=== PATIENT | male | born 1935 | race Caucasian/White ===

== ENCOUNTER 2022-05-17 10:22 | Day surgery (SDC) | payer MEDICARE, SELFPAY ==
[2022-05-17] VITALS (9 sets, daily range): BP systolic 132–156; BP diastolic 67–90; PULSE 61–66; RESP 15–17; TEMP 36.8; O2SAT 96–98; BMI 22.1
[2022-05-17] MEDS: BUPIVACAINE 0.5% 30 ML INJECTION (13:26)
[2022-05-17] MEDS: LIDOCAINE 1 % PF 30 ML INJECTION (13:30)
--- NOTE | 2022-05-17 15:07 | P.GSOP_ITS ---
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 Conservative measures failed to resolve the situation. Would like to proceed with surgical intervention. At his age instead of reconstructive surgery amputation is likely his best option. He is in agreement and would like to proceed. Reviewed the procedure, recovery, expectations and potential complications. These include but not limited to: Poor wound healing, infection, potential need for future surgery, deep venous thrombosis, pulmonary embolism and possible . He unde rstands risks written consent obtained. Procedure Description: After discussing the risks and benefits of the procedure, the patient signed informed consent.? The operative site was marked and the patient was brought to the operating room and placed on the operating table in supine position.? Care was taken to pad the patient's pressure points.?? The patient was then injected with a combination of 0.5% Marcaine plain and lidocaine 1% plain.?? The operative site was then prepped and draped in the usual sterile fashion.? A time-out was then performed. The right foot was exsanguinated and the ankle tourniquet inflated to 250 mm Hg. Dorsal incision was made at the 2nd MPJ and extended along both the medial and lateral base of 2nd toe converging plantarly. Incisions were taken directly to bone. The toe was disarticulated at the metatarsophalangeal joint and removed in total. Wound was thoroughly irrigated normal sterile saline. Tourniquet was released and all bleeding vessels cauterized. Medial and lateral skin was then brought together and repaired with 3-0 nylon. Sterile dressings were then applied. The patient was then woken and transported to the recovery area in stable condition. The patient tolerated the procedure well. Findings: Complications: None apparent Implants: None Anesthesia: local Surgeon: Adán Boone DPM Estimated blood loss (mL): 5 Condition: stable Disposition: same day
== END 2022-05-17 14:09 | disposition home or self-care (01) ==
PROVIDERS: PCP Family Medicine; Visit Provider Podiatrist
PROC: (CPT 28820; principal; 2022-05-17 12:45)
DX: M20.5X1 Other deformities of toe(s) (acquired), right foot (principal)
CPT/HCPCS: 28820; J2001; J3490

== ENCOUNTER 2024-12-26 10:03 | Emergency (ER) | payer MEDICARE, SELFPAY ==
--- OUTSIDE RECORDS SUMMARY | 2024-12-26 10:07 | XMS_ITS | Clinical Summary ---
Author Organization [facility] Address [address] [place] [id number] Care Team Providers Care Support Coordinator Name Role Phone AllanteDanie jimenez MD Primary Care Provider + Tere Chaves MD Unavailable [phone] Yahaira Singer Unavailable [phone] Louann Jerez MD Unavailable John Rm MD Unavailable [phone] Allergies Active Allergy Reactions Criticality Noted Date Comments Ciprofloxacin Other - Describe In Comment Field 10/07/2022 Please avoid fluoroquinolones in patient with aortic or iliac aneurysm/dissection. Medications MULTIVITAMIN TAB Once daily 0 7 Active docosahexaenoic acid/epa (FISH OIL ORAL) Take 1 Capsule by mouth once daily. 180 3 7 Active ASPIRIN, BUFFERED 325 MG TAB Take 325 mg by mouth once daily. 0 8 Active VITAMIN D 1,000 UNIT CAP Take by mouth once daily. 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 90 Tablet 3 5 Active hydroxychloroquin e 200 mg tabletIndications :Pseudogout Take 1/2 tablet (split tablet in half) of the 200 mg to equal 100 mg daily 45 Tablet 3 5 Active colchicine 0.6 mg tabletIndications :Pseudogout Take 1 Tablet (0.6 mg) by mouth once daily. 90 Tablet 3 5 Active atorvastatin 20 mg tabletIndications :Atherosclerosis of coronary artery of nav[place] heart without angina pectoris, unspecified vessel or lesion type TAKE 1 TABLET BY MOUTH EVERYDAY AT BEDTIME 90 Tablet 3 5 Active lisinopriL (PRINIVIL; ZESTRIL) 20 mg tabletIndications :Essential hypertension Take 1 Tablet (20 mg) by mouth once daily. 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 Normal LV size, borderline wall thickness, mildly hyperdynamic wall motion and EF of > 75%. 2. Grade 2 pattern of LV diastolic filling (impaired relaxation with mildy increased LAP). 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, bilateral 12/23/2017 Unspecified essential hypertension 12/22/2006 Resolved Problems Problem Noted Date Diagnosed Date Resolved Date Abdominal aortic aneurysm (A AA) without rupture, unspecified part 04/28/2022 08/24/2023 Depression, endogenous 01/30/202110/01 Syncope 12/29/2020 10/14/2022 Routine adult health maintenance 10/17/2017 10/14/2022 Overview (10/17/2017): Colonoscopy 09/2017 diverticulosis, no follow up needed Sensorineural hearing loss, bilateral 07/24/2012 10/18/2018 Coronary atherosclerosis of unspecified type of vessel, navajo or graft 12/22/2006 10/14/2022 Overview (12/04/2007): Stents X 2 at [place] 2004, left Anterior descending and first diagonal Encounters Date Type Department Care Team Description 12/26/2024 Nurse Triage [facility] [address] [place] [address] Danie Tim MD Chest Pain 10/27/2024 Refill [facility] [address] [place] [address] Danie Tim MD Refill Request (Lisinopril) from Last 3 Months Immunizations Immunization Administration Dates Next Due COVID-19 VACCINE SPIKEVAX (M ODERNA 50MCG/0.5ML) 12YO+ PFS 01/10/2024 COVID-19 vaccine (Moderna 100mcg/0.5mL) PF, MDV 06/13/2020,05/16/2020 COVID-19 vaccine (Pfizer-Bio NTech 30mcg/0.3mL) 12YO+ GRIS-SUCROSE PF, MDV 08/31/2021 COVID-19 vaccine ([place] Anymoba-Bio NTech 30mcg/0.3mL) PF, MDV 01/26/2021 Influenza A (H1N1), Inactivated 04/30/2009 Influenza A (H1N1), Inactiva paige (Age >=3 Years) 01/23/2011,04/30/2009 Influenza, High-dose Inactivated 019,11/16/2017,02/11/2016,2015 Influenza, High-dose Quadriv alent Inactivated 01/29/2022 Influenza, IIV3 (Age 6-35 mos) 04/30/2009 Influenza, IIV3 (Age >=3 years) 12/27/19 10,04/30/2009,01/04/2008,2006,02/02/2006 Influenza, Inactivated AIIV4 (Age 65+ Years) Preserv Free 01/26/2021 Influenza, Inactivated IIV3 (Age 65+ Years) Preserv Free 02/14/2024,12/16/2016 Pneumococcal Poly,23-Valent (Pneumovax) 12/16/2016,05/12/2006 Pneumococcal conj 13-Valent (Prevnar 13) 04/30/2015 Tdap 06/30/2010 Tdap, Unspecified 12/19/2020 Zoster (Shingrix-RZV, recombinant) 10/02/2018,,06/11/2018 Family History Medical History Relation Name Comments Other Brother 4 d63, stomach ca Other Father d 72, AAA Other Mother d72, durin g surgery, colitis/otosclerosis, two sisters have it as well Other Sister 3 d72, lung ca, s moker Relation Name Status Comments Brother 1 Alive Brother 2 Alive Brother 3 Brother 4 Father Alive Mother Alive Sister 1 Sister 2 Alive Sister 3 Social History Tobacco Use Types Packs/Day Years Used Date Smoking Tobacco: Former Cigarettes 1.5 24 Smokeless Tobacco: Never Tobacco Cessation:Counseling Given: Yes Comments:1982 quit Alcohol Use Standard Drinks/Week Comments No 0 (1 standard drink = 0.6 oz pur e alcohol) quit 73 (etoh) PHQ-2 Answer Date Recorded PHQ-2 TOTAL SCORE 0 08/29/2024 Social Connections Answer Date Recorded Do you often feel lonely or isolated from those around you? 0 08/29/2024 Financial Resource Strain Answer Date R ecorded Difficulty of Paying Living Expenses 3 08/29/2024 Difficulty of Paying Living Expenses Not on file 08/29/2024 Food Insecurity Answer Date Recorded Do you worry your food will run out before you are able to buy more? 1 08/29/2024 Transportation Needs Answer Date Record ed Does lack of transportation keep you from medica l appointments? 1 08/29/2024 Does lack of transportation keep you from work, meetings or getting things that you need? 1 08/29/2024 Housing Stability Answer Date Recorded What is your housing situation today? 1 08/29/2024 Utilities Answer Date Recorded Do you have trouble paying f or utilities (for example, heat, electricity, water, phone)? 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 Not on file Not on file Not on file Obstetrics History Last Filed Vital Signs Vital Sign Reading Time Taken Comments Blood Pressure 128/82 08/29/2024 8:14 AM CDT Pulse 77 08/29/2024 8:14 AM CDT Temperature 36.5 C (97.7 F) 08/29/2024 8:14 AM CDT Respiratory Rate 16 01/05/2023 9:10 AM CDT Oxygen Saturation 96% 08/29/2024 8:14 AM CDT Inhaled Oxygen Concentration - - Weight 55.1 kg (121 lb 8 oz) 08/29/2024 8:14 AM CDT Height 162.6 cm (5' 4) 08/29/2024 8:14 AM CDT Body Mass Index 20.86 08/29/2024 8:14 AM CDT Plan of Treatment Health Maintenance Due Date Last Done Comments RSV vaccine for adults or (1 - 1-dose 75+ series) 10/07/2011 COVID-19 vaccine series (9 - Mixed Product risk season) 2024 01/10/2024, 03/15/2023, 10/11/2022, Additional history exists Influenza Vaccine (#1) 2024 , 01/26/2021, 12/09/2018, Additional history exists BMI (ht and wt on same day) for age 18+ 08/29/2025 08/29/2024, 02/14/2024, 01/10/2024, Additional history exists Depression screening for age 12+ 08/29/2025 08/29/2024, 08/25/2023, 08/25/2023, Additional history exists Medicare Wellness for age 65+ 08/30/2025 08/29/2024, 08/24/2023, 04/28/2022, Additional history exists Tetanus booster 12/19/2030 12/19/2020, 06/30/2010 Pneumococcal series for age 50+ Completed 12/16/2016, 04/30/2015, 05/12/2006 Zoster (shingles) series for age 50+ Completed 10/02/2018, 06/26/2018, 06/11/2018 Hepatitis B series for 19+ Aged Out N o longer eligible based on patient's age to complete this topic Medical Devices Implanted Type Area Grocery Specialist Device Identifier Shelf Expiration Date Model / Serial / Lot Stent [id number] Bif Aaa Excluder Comfortable Evar - [id number] Implanted:Qty: 1 on 10/18/2022 by Zeeshan Mckeon MD at [facility] Cv Implants N/A: Aorta W L Devine 07/24/2025 [id number] / [id number] / Stent Aaa 18x95 Excluder Limb - [id number] Implanted:Qty: 1 on 10/18/2022 by Zeeshan Mckeon MD at [facility] Cv Implants N/A: Aorta W L Devine 05/22/2025 [id number] / [id number] / Description:Implanted into R ight Common Iliac. Stent Aaa 18x95 Excluder Limb - [id number] Implanted:Qty: 1 on 10/18/2022 by Zeeshan Mckeon MD at [facility] Cv Implants Left: Aorta W L Devine 07/28/2025 [id number] / [id number] / Description:Implanted in Lef t Common Iliac Artery Insurance [facility] MEDICARE ADVANTAGE MR MEDICARE PART A HB ONLY Advance Directives Documents on File Type Date Recorded Patient Web Content Coordinator Expl anation Healthcare Directive 10/08/2022 023 * Full Code (Latest Code Status on File) Date Activated Date Inactivated Comments 01/04/2023 9:39 AM 01/05/2023 1:39 PM Question Answer Comments Code Status Discussion: Discussed * Full Code Date Activated Date Inactivated Comments 10/18/2022 4:05 PM 10/19/2022 3:46 PM Question Answer Comments Code Status Discussion: Reviewed Preferences * Full Code Date Activated Date Inactivated Comments 10/18/2022 8:46 AM 10/18/2022 4:05 PM Question Answer Comments Code Status Discussion: Unable to Assess Preferences, Provider to review later * Full Code Date Activated Date Inactivated Comments 06/30/2016 6:41 AM 06/30/2016 12:12 PM Care Teams Support Coordinator Relationship Specialty Start Date End Date VotelDanie MD [address] [place] [address] PCP - General 10/22/08 Tere Chaves MD [address] [place] [address] Ophthalmology Ophthalmology Surgery 09/30/10 Yahaira Singer AuD [address] [place] [address] Audiology 10/20/06 Louann Jerez MD [address] [facility] [address] [place] [address] Rheumatology Rheumatology 12/06/18 John Rm MD [address] [place] [address] Sports Medicine - Family Medicine 12/06/18
[2024-12-26 10:20] VITALS: BP 134/83; PULSE 77; RESP 18; TEMP 37.1; O2SAT 97; BMI 20.9
--- NOTE | 2024-12-26 10:40 | CRLHL7_ITS ---
For Patients: As a result of the Century Cures Act, medical imaging exams and procedure reports are released immediately into your electronic medical record. You may view this report before your referring provider. If you have questions, please contact your health care provider. INDICATION: PAIN IN LEFT LOWER RIBS. (Sic) COMPARISON: 12/08/2018 TECHNIQUE: PA chest and two views of the left ribs ( images). FINDINGS: Medical Devices: None. Lung Volumes: Adequate inspiration. No significant atelectasis. Lungs: Unchanged peripheral left basilar thin uniform horizontally oriented linear opacity consistent with nonspecific fibrosis. Lungs are otherwise clear. Pleura and Pleural spaces: No significant pleural effusion. No pneumothorax. No extrapleural hematoma. Mediastinum: Interval TAVR. Bony Thorax and Soft Tissues: A radiopaque skin marker placed over the area of concern is in the region of the left anterior 7th and 8th ribs. No left rib fracture is identified. Interval abdominal aortic endovascular stent graft. Elevation of the left hemidiaphragm is also new in the interval since the prior study. IMPRESSION: No left rib fracture is identified to explain the clinical history. Incidental findings described in the body of the report. Dictated by Alexandr Pierson MD @ 12/26/2024 11:12:44 AM (Electronically Signed)
--- NOTE | 2024-12-26 10:41 | ED.GENADULT ---
HPI - General Adult General Chief complaint: Abdominal Pain Stated complaint: Possible blood clot in lung Time Seen by Provider: 12/26/24 10:34 History of Present Illness HPI narrative: 81 year white male presents with some left lower chest wall pain. He reports that is along his lower rib cage on the left, comes every couple of days last about 20 minutes, if he lays down it gets better. He denies fever, chills, chest pain anteriorly, diaphoresis or nausea. Denies bowel or bladder change. He reports between episodes he is just fine. He has had no recent weight loss. He has had no rigors or chills or night sweats. He reports this pain as he describes to me is right along the chest wall costochondral margin on the left lower mid chest. No leg swelling, edema, shortness of breath. He states when he has this discomfort he moves it will hurt more. And he can palpate the pain. Related Data Home Medications ?Medication ?Instructions ?Recorded ?Confirmed aspirin,buffered (calcium 1 tab PO DAILY 05/13/22 12/26/24 carbonate-magnesium) 325 mg tablet cholecalciferol (vitamin D3) 25 1,000 unit PO DAILY 05/13/22 12/26/24 mcg (1,000 unit) capsule colchicine 0.6 mg tablet 0.6 mg PO DAILY 05/13/22 05/17/22 hydroxychloroquine 100 mg tablet 100 mg PO DAILY 05/13/22 05/17/22 hydroxychloroquine 200 mg tablet 100 mg PO DAILY 05/13/22 05/17/22 (Plaquenil) lisinopril 20 mg tablet 20 mg PO DAILY 05/13/22 12/26/24 metoprolol tartrate 100 mg tablet 50 mg PO BID 05/13/22 12/26/24 multivitamin 1 tab PO DAILY 05/13/22 12/26/24 omega-3 fatty acids 500 mg capsule 500 mg PO DAILY 05/13/22 05/17/22 trazodone 50 mg tablet 100 mg PO QHS 05/13/22 12/26/24 pravastatin 20 mg tablet 20 mg PO DAILY 12/26/24 12/26/24 Previous Rx's ?Medication ?Instructions ?Recorded prednisone 20 mg tablet 20 mg PO BID #10 tabs 12/26/24 Allergies Allergy/AdvReac Type Severity Reaction Status Date / Time No Known Allergies Allergy Verified 12/26/24 10:26 Review of Systems Status of ROS: Reports: 6 or more systems reviewed and unremarkable except as noted in History and below [facility] Medical History Hypotension ?I95.9 - Hypotension, unspecified (ICD-10) Syncope ?R55 - Syncope and collapse (ICD-10) H/O calcium pyrophosphate deposition disease (CPPD) ?Z87.39 - Personal history of other diseases of the musculoskeletal system and connective tissue (ICD-10) Mixed hearing loss, bilateral ?H90.6 - Mixed conductive and sensorineural hearing loss, bilateral (ICD-10) Abdominal aneurysm without mention of rupture ?I71.40 - Abdominal aortic aneurysm, without rupture, unspecified (ICD-10) Unspecified essential hypertension ?I10 - Essential (primary) hypertension (ICD-10) Social History Smoking Status: Never smoker How often do you have a drink containing alcohol: never AUDIT-C Alcohol total score: 0 Non-prescribed substance use: denies use Caffeine: Yes Exam Narrative: Exam Narrative: Objective: Vital signs are within normal limits Alert orient x3 He is in no distress now is asymptomatic. He reports that his pain is in the left lower ribcage area. I palpated this area notice checked any obvious discomfort or masses or swelling. His heart is rate and rhythm regular Lungs clear. Const: Vital Signs, click to edit/add: Vital Signs - 24 hr 12/26/24 10:20 Temperature 98.7 F Pulse Rate [Pulse Oximeter] 77 Respiratory Rate 18 Blood Pressure [Le ft Upper Arm] 134/83 Pulse Oximetry 97 Oxygen Delivery Me thod Room Air Course Vital Signs Vital signs: Initial Vital Signs Temperature 98.7 F 12/26/24 10:20 Temperature Source Temporal Artery Scan 12/26/24 10:20 Pulse Rate 77 12/26/24 10:20 Respiratory Rate 18 12/26/24 10:20 Blood Pressure 134/83 12/26/24 10:20 Blood Pressure Mean 100 12/26/24 10:20 Blood Pressure Position Sitting 12/26/24 10:20 Pulse Oximetry 97 12/26/24 10:20 Oxygen Delivery Method Room Air 12/26/24 10:20 Vital Signs Temperature 98.7 F 12/26/24 10:20 Pulse Rate 77 12/26/24 10:20 Respiratory Rate 18 12/26/24 10:20 Blood Pressure 134/83 12/26/24 10:20 Pulse Oximetry 97 12/26/24 10:20 Oxygen Delivery Method Room Air 12/26/24 10:20 Temperature 98.7 F 12/26/24 10:20 Pulse Rate 77 12/26/24 10:20 Respiratory Rate 18 12/26/24 10:20 Blood Pressure 134/83 12/26/24 10:20 Pulse Oximetry 97 12/26/24 10:20 Oxygen Delivery Method Room Air 12/26/24 10:20 Medical Decision Making MDM Narrative Medical decision making narrative: [age] year white male with a history of costochondral pain that is intermittent. He may benefit actually from some steroids prednisone 20 mg b.i.d. for 5 days might help inflammatory condition. I do not detect that he has got symptoms consistent with acute coronary syndrome or other pathology. I do think an x-ray of his chest would be appropriate to make sure there is no rib fracture other issue given his age. He was comfortable this plan. Addendum 11:15 a.m. the patient's x-ray by my review independently looks unremarkable for any fracture. Confirmed by Radiology. He does have new endovascular aortic stenting. I think at this point simply prednisone 20 b.i.d. for 5 days would be very helpful for him see if would help minimize his chest wall discomfort. Recheck with regular doctor in 5-7 days return to ED sooner problems or concerns. His symptoms are consistent with acute coronary syndrome or PE given that there are intermittent and only every couple of days his O2 sat looks excellent. Discharge Plan Discharge Clinical Impression: Acute chest wall pain Patient Disposition: Home, Self-Care Condition: Stable Additional Instructions: May try some ice on that area of the lower chest wall ribcage area, will give you some prednisone to take for inflammation. Hopefully that will resolve the situation. Follow up with regular doctor in the next 5-7 days not resolving. Return to ED sooner problems or concerns or changes. Activity Level: Light activity Discharge Diet: Regular Prescriptions: New prednisone 20 mg tablet 20 mg PO BID Qty: 10 0RF No Action aspirin,buffd-calcium carb-mag 325 mg tablet 1 tab PO DAILY colchicine 0.6 mg tablet 0.6 mg PO DAILY omega-3 fatty acids 500 mg capsule 500 mg PO DAILY hydroxychloroquine [Plaquenil] 200 mg tablet 100 mg PO DAILY hydroxychloroquine 100 mg tablet 100 mg PO DAILY lisinopril 20 mg tablet 20 mg PO DAILY metoprolol tartrate 100 mg tablet 50 mg PO BID multivitamin Tablet 1 tab PO DAILY trazodone 50 mg tablet 100 mg PO QHS cholecalciferol (vitamin D3) 25 mcg (1,000 unit) capsule 1,000 unit PO DAILY pravastatin 20 mg tablet 20 mg PO DAILY Follow Up/Referrals: Danie Tim MD [Primary Care Provider, Family Practice] Stand Alone Forms: [facility] Info Instructions
== END 2024-12-26 11:30 | disposition home or self-care (01) ==
PROVIDERS: Emergency Provider Family Medicine; PCP Family Medicine
DX: R07.89 Other chest pain (principal)
CPT/HCPCS: 71101; 99284